=== PATIENT | female | born 1955 | race Caucasian/White ===

== ENCOUNTER → 2016-09-07 | Outpatient (CLI) | payer OTHER ==
[~2016-09-07] MED LIST: ALEVE220 MG PO; HYDROCODONE1 TABLET PO; SUDAFED PE10 MG PO
[2016-09-07 15:09] LABS: HEMOGLOBIN 13.6 g/dL (12.2-16.2); LYMPH # 1.1 K/mm3 (0.7-4.5); LYMPH % 16.2 % (10-50.0)
== END ==
LOC: LAB 14:27
PROVIDERS: Plastic Surgery
DX: Z01.818 Encounter for other preprocedural examination (principal)